=== PATIENT | female | born 1965 | race Caucasian/White ===

== ENCOUNTER 2017-04-28 20:01 | Emergency (ER) | payer OTHER ==
--- NOTE | 2017-04-28 20:12 | ED Physician Documentation ---
General Adult - HISTORIAN Historian: patient - HPI Stated Complaint: headache, HTN, n/v Chief Complaint: General Adult Onset: days ago (1) Timing: still present Severity: moderate Further Comments: yes (Pt is a 52 yo female with headache, n/v, and elevated bp 144/101. Pt takes HCTZ for bp. Family members have been ill with stomach illness this week.) - ROS CONST: other (malaise) EYES/ENT: none CVS/RESP: none GI/: nausea (dry heaves) MS/SKIN/LYMPH: none NEURO/PSYCH: headache - PAST HX Past History: hypertension, other (GERD) Surgeries/Procedures: hysterectomy Allergies/Adverse Reactions: Allergies Allergy/AdvReac Type Severity Reaction Status Date / Time No Known Allergies Allergy Verified 04/28/17 20:12 Home Medications: Ambulatory Orders Medication Instructions Recorded Hydrochlorothiazide [Hydrodiuril] 25 mg PO DAILY 04/28/17 Omeprazole [Prilosec] 40 mg PO QDAY 04/28/17 - SOCIAL HX Smoking History: non-smoker - FAMILY HX Family History: No - VITAL SIGNS Vital Signs: Vital Signs Temp Pulse Resp BP Pulse Ox 132/68 05/19/13 17:28 - REVIEWED ASSESSMENTS Nursing Assessment Reviewed: Yes Vitals Reviewed: Yes Progress - Progress Progress: NS 1 L IVF Zofran 4 mg IV Toradol 15 mg IV headache improved sx improved/resolved BP 129/75 General Adult Physical Exam - PHYSICAL EXAM GENERAL APPEARANCE: moderate distress EENT: pharynx normal NECK: normal inspection, supple RESPIRATORY: no resp distress, chest non-tender, breath sounds normal CVS: heart sounds normal, tachycardia ABDOMEN: soft, no organomegaly, normal bowel sounds BACK: normal inspection SKIN: warm/dry, normal color EXTREMITIES: non-tender, normal range of motion, no evidence of injury NEURO: oriented X3, motor nml, sensation nml Discharge Clincal Impression: headache, n/v Referrals: Christiano Trejo [Primary Care Provider] - Condition: Good Disposition: HOME, SELF-CARE Decision to Admit: NO Decision Time: 21:34
[2017-04-28] MEDS ORDERED: ONDANSETRON HCL/PF 4 MG/ 2ML VIAL IVP ONE (20:16)
[2017-04-28] MEDS ORDERED: KETOROLAC TROMETHAMINE 30 MG/1ML VIAL IVP ONE (20:18)
[2017-04-28] MEDS ORDERED: 0.9 % SODIUM CHLORIDE 1,000 ML IV ONE (20:19)
[2017-04-28 21:00] LABS: BASOPHILS % 0.4 (0.0-1.5); MEAN CORPUSCULAR HEMOGLOBIN 31.4 pg (28.0-34.0); MEAN CORPUSCULAR VOLUME 87.3 fl (80.0-100.0)
[2017-04-28 21:18] LABS: eGFR (African) > 60; eGFR (Non-African) > 60
[2017-04-28 21:21] LABS: MONOCYTES % 5.9 % (0.0-11.0)
[2017-04-28 21:22] LABS: EOSINOPHILS % 0.3 % (0.0-6.8); NEUTROPHILS # 5.3 # k/uL (1.4-7.7)
[2017-04-28 21:51] VITALS: BP 129/75
== END 2017-04-28 21:35 | disposition home or self-care (01) ==
LOC: ED 20:01
DX: R51 Headache (principal)
CPT/HCPCS: 80053; 85025; J1885; J2405; J7030; 96361; 96374; 96375; 99283; S1016